=== PATIENT | female | born 1990 | race Caucasian/White ===

== ENCOUNTER 2021-08-28 20:44 | Emergency (ER) | payer OTHER ==
[~2021-08-28 20:44] MED LIST: ALLEGRA ALLERG180 MG PO; BUSPAR 5MG TABLE5 MG PO; CIMETIDINE800 MG PO; DESYREL 50 MG T50 MG PO; FEOSOL325 MG PO; IBU600 MG PO; IBUPROFEN800 MG PO; KEFLEX CAP 500500 MG PO; KEFLEX500 MG PO; LAMICTAL100 MG PO; PERCOCET 5/325 T1 EA PO; POVIDONE-IOD28.35 GM TOP; PROTONIX40 MG PO; ULTRAM50 MG PO; VIIBRYD10 MG PO; VIT C PO; VITAMIN B-121000 MCG PO; VITAMIN C 500500 MG PO; VITAMIN D250000 UNIT PO; VRAYLAR PO; VRAYLAR1.5 MG PO; XYZAL5 MG PO; ZANTAC150 MG PO
[2021-08-28] MEDS ORDERED: ENDOCET 5-3251 EACH PO ×2 (21:43→21:44)
== END 2021-08-28 22:30 | disposition home or self-care (01) ==
LOC: ER1 20:44
DX: S83.014A Lateral dislocation of right patella, initial encounter (principal); X50.9XXA Other and unspecified overexertion or strenuous movements or postures, initial encounter
CPT/HCPCS: 27560; 73560; 96374; 99283; J1170; J2550

== ENCOUNTER → 2021-09-06 | Outpatient (CLI) | payer OTHER ==
[~2021-09-06] MED LIST changes: +ENDOCET 5-3251 EACH PO
== END ==
LOC: KOH-I 08:00
DX: S83.014A Lateral dislocation of right patella, initial encounter (principal); S76.111A Strain of right quadriceps muscle, fascia and tendon, initial encounter
CPT/HCPCS: 73721